=== PATIENT | male | born 1995 | race Caucasian/White ===

== ENCOUNTER 2022-07-15 22:45 | Emergency (ER) | payer SELFPAY ==
[2022-07-15 22:59] VITALS: BP 170/91; PULSE 118; RESP 18; O2SAT 98; BMI 25.7
[2022-07-15 23:09] VITALS: TEMP 36.9
--- NOTE | 2022-07-15 23:11 | DI.RAD.S_ITS ---
PROCEDURE: XR FACIAL BONES MIN 3V INDICATIONS: swelling/pain TECHNIQUE: 5 views of the facial bones were acquired. COMPARISON: None. FINDINGS: Sinuses: Visualized sinuses demonstrate no air-fluid levels or mucosal thickening. Bones: No fractures. No suspicious bony lesions. Orbital rims and zygomatic arches appear intact. Soft tissues: No suspicious soft tissue densities. IMPRESSION: No trauma found. Dictated by: Jose Allen M.D. on 07/15/2022 at 23:41 Approved by: Jose Allen M.D. on 07/15/2022 at 23:42
--- NOTE | 2022-07-15 23:11 | DI.RAD.S_ITS ---
PROCEDURE: XR CLAVICLE LT INDICATIONS: pain TECHNIQUE: 2 views of the clavicle were acquired. COMPARISON: None. FINDINGS: Bones: There is a left midclavicular fracture, overlapped by approximately 1 shaft width, with the proximal clavicle fracture tip below the more medial fracture tip, angled cephalad. Soft tissues: No suspicious soft tissue calcifications. IMPRESSION: Fracture malalignment with 1 shaft width overlap at the mid clavicular fracture. Dictated by: Jose Allen M.D. on 07/15/2022 at 23:42 Approved by: Jose Allen M.D. on 07/15/2022 at 23:43
--- NOTE | 2022-07-15 23:36 | PC.NURSE ---
Ice pack applied to left shoulder.
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
[2022-07-16 01:31] LABS: Add Manual Diff / Slide Review NO; Basophils Absolute Auto 100 /uL (0-100); Basophils Percent Auto 0.3 % (0-2); Eosinophils Absolute Auto 0 /uL (0-450); Eosinophils Percent Auto 0.1 % (2-4); Hematocrit 43.4 % (41-53); Lymphocytes Absolute Auto 1100 /uL (1100-4500); Lymphocytes Percent Auto 6.8 % (25-40); Mean Corpuscular HGB Conc 32.4 % (30-36); Mean Corpuscular Hemoglobin 27.7 PG (26-34); Mean Corpuscular Volume 85.7 fL (80-100); Monocytes Absolute Auto 1000 /uL (0-900); Monocytes Percent Auto 6.1 % (3-14); Neutrophils Absolute Auto 14600 /uL (1500-7000); Neutrophils Percent Auto 86.7 % (50-75); Platelet Count 315 X10^3/uL (150-400); Red Blood Cell Count 5.06 X10^6/uL (4.5-5.9); Red Cell Distribution Width 13.7 % (11.6-14.8); White Blood Cell Count 16.8 X10^3/uL (4.5-11.0)
[2022-07-16 01:43] LABS: Alanine Aminotransferase 24 IU/L (<50); Albumin 4.9 g/dL (3.5-5.0); Albumin Globulin Ratio 1.5 (1.0-2.8); Alkaline Phosphatase 82 U/L (38-126); Aspartate Aminotransferase 26 IU/L (17-59); BUN Creatinine Ratio 23.6 (6-22); Bilirubin Total 0.3 mg/dL (0.2-1.3); Blood Urea Nitrogen 17 mg/dL (9-20); Carbon Dioxide 23 mmol/L (22-32); Chloride 104 mmol/L (98-107); Estimated Glomerular Filt Rate > 60 mL/min (>60); Ethanol (ETOH) 197 mg/dL; Globulin 3.3 g/dL (1.7-4.1); Glucose 115 mg/dL (70-100); HEMOLYSIS < 15 (0-50); Potassium 4.1 mmol/L (3.4-5.1); Sodium 143 mmol/L (137-145); Total Protein 8.2 g/dL (6.3-8.2)
== END 2022-07-16 03:30 | disposition home or self-care (01) ==
PROVIDERS: Emergency Provider Emergency Medicine
DX: S02.2XXA Fracture of nasal bones, initial encounter for closed fracture (principal); S42.022A Displaced fracture of shaft of left clavicle, initial encounter for closed fracture; S06.0XAA Concussion with loss of consciousness status unknown, initial encounter; S02.401A Maxillary fracture, unspecified side, initial encounter for closed fracture; F10.129 Alcohol abuse with intoxication, unspecified; Y90.6 Blood alcohol level of 120-199 mg/100 ml; Y04.2XXA Assault by strike against or bumped into by another person, initial encounter
CPT/HCPCS: 36415; 70150; 70450; 72125; 73000; 80053; 80320; 85025; 99283; 99284

== ENCOUNTER → 2023-12-29 17:09 | Outpatient (CLI) | payer OTHER, SELFPAY | PROVIDERS: Visit Provider Physician Assistant Surgical | DX: R36.0 Urethral discharge without blood (principal); R30.0 Dysuria | CPT/HCPCS: 87086; 87210 ==

== ENCOUNTER → 2023-12-29 17:47 | Outpatient (CLI) | payer OTHER, SELFPAY ==
[2023-12-29 19:30] LABS: Urine Chlamydia NOT DETECTED; Urine N gonorrhoeae NOT DETECTED
[2023-12-29 19:35] LABS: Hepatitis B Surface Antigen NEGATIVE s/c (NEGATIVE)
[2023-12-29 19:51] LABS: HIV 1 & 2 Ab/Ag 4th Gen Combo NEGATIVE (NEGATIVE); Hep C Virus Ab w/Reflex Quant NEGATIVE s/c (NEGATIVE)
[2024-01-02 07:22] LABS: HSV 2 IGG AB < 0.91 index (0.00-0.90); HSV1IGG 4.95 index (0.00-0.90); RPR Screen Non Reactive (Non Reactive)
== END ==
PROVIDERS: Referring Provider Physician Assistant Surgical; Visit Provider Physician Assistant Surgical
DX: Z72.51 High risk heterosexual behavior (principal); R36.0 Urethral discharge without blood; R30.0 Dysuria
CPT/HCPCS: 36415; 86592; 86695; 86696; 86803; 87086; 87210; 87340; 87389; 87491; 87591

== ENCOUNTER → 2024-02-26 16:26 | Outpatient (CLI) | payer OTHER, SELFPAY ==
--- NOTE | 2024-02-26 16:28 | DI.RAD.S_ITS ---
PROCEDURE: XR FOOT RT MIN 3V INDICATIONS: Right foot injury TECHNIQUE: 3 views of the foot were acquired. COMPARISON: None. FINDINGS: Bones: No displaced fracture or dislocation. Mild 1st MTP degenerative changes. Soft tissues: Tissues no suspicious calcifications. IMPRESSION: No acute radiographic abnormality. Mild degenerative changes of the 1st MTP. If there is high concern for occult injury, consider repeat radiography or cross-sectional imaging. Dictated by: Surinder France M.D. on 02/27/2024 at 8:26 Approved by: Surinder France M.D. on 02/27/2024 at 8:29
== END ==
PROVIDERS: Referring Provider Nurse Practitioner Family; Visit Provider Nurse Practitioner Family
DX: S99.921A Unspecified injury of right foot, initial encounter (principal); X58.XXXA Exposure to other specified factors, initial encounter
CPT/HCPCS: 73630